=== PATIENT | female | born 1985 | race Caucasian/White ===

== ENCOUNTER 2022-12-31 09:52 | Inpatient (IN) | payer MEDICAID ==
[~2022-12-31] VITALS: Ht 157.5 cm; Wt 58.1 kg
[2022-12-31 10:41] LABS: BASOPHILS % 0.9 % (0.0-2.0); CHLORIDE 103 mEq/L (98-107); EOSINOPHILS % 1.3 % (0.0-5.0); HEMATOCRIT. 37.7 % (36.0-48.0); HEMOGLOBIN. 12.7 g/dL (12.0-16.0); INDEX HEMOLYSI 1 (1-3); INDEX ICTERIC 2 (1-4); INDEX LIPEMIC 1 (1-3); LYMPHOCYTES % 14.4 % (20.0-50.0); MEAN CORPUSCULAR HEMOGLOBIN 35.5 pg (28.0-32.0); MEAN CORPUSCULAR HGB CONC 33.6 g/dL (31.0-37.0); MEAN CORPUSCULAR VOLUME 105.8 fL (81.0-99.0); MONOCYTES % 7.8 % (2.0-8.0); NEUTROPHILS % 75.6 % (40.0-76.0); POTASSIUM 3.8 mEq/L (3.5-5.1); RED BLOOD CELL COUNT 3.56 mill/uL (4.2-5.4); RED CELL DISTRIBUTION WIDTH 12.6 % (11.6-14.6); SODIUM 137 mEq/L (136-145); WHITE BLOOD COUNT 10.3 x1000/uL (4.5-11.0)
[2022-12-31 10:51] LABS: ALANINE AMINOTRANSFERASE 59 IU/L (13-61); ALBUMIN 2.9 g/dL (3.4-5.0); ASPARTATE AMINOTRANSFERASE 231 IU/L (15-37); BILIRUBIN TOTAL 4.1 mg/dL (0.1-1.0); CALCIUM 7.9 mg/dL (8.5-10.1); CARBON DIOXIDE 29 mEq/L (21-32); CREATININE 0.3 mg/dL (0.6-1.3); GLUCOSE 122 mg/dL (70-105); NT PRO B-TYPE NATRIURETIC PEP 157 pg/mL (5-125); PROTEIN TOTAL 8.9 g/dL (6.0-8.3); TROPONIN I HIGH SENSITIVITY 33 ng/L (<54); UREA NITROGEN BLOOD 2 mg/dL (7-21)
[2022-12-31 11:02] LABS: DIFFERENTIAL COMMENT 1
[2022-12-31 13:08] LABS: TROPONIN I HIGH SENSITIVITY 33 ng/L (<54)
[2022-12-31] MEDS ORDERED: ONDANSETRON HCL 4MG/2ML INJ IV ONE (13:15)
[2022-12-31] MEDS ORDERED: SODIUM CHLORIDE 0.9% 1,000 ML IV ONE (13:15)
[2022-12-31] MEDS ORDERED: FAMOTIDINE 20MG/2ML VIAL IV ONE (13:15)
[2022-12-31 13:24] LABS: HCG SCREEN NEGATIVE
[2022-12-31] MEDS ORDERED: CALCIUM GLUCONATE 1GM PREMIX 50 ML IV NR (14:00)
[2022-12-31] MEDS ORDERED: CHLORDIAZEPOXIDE 25MG CAPSULE PO ONE (17:00)
[2022-12-31] MEDS ORDERED: PIPERACILLIN/TAZOBACTAM 3.375GM/50ML PREMIX IV NR (19:30)
[2022-12-31] MEDS ORDERED: PIPERACILLIN/TAZ 3.375G PREMIX 50 ML IV NR (19:35)
[2022-12-31 20:26] LABS: CLARITY URINE CLEAR (CLEAR); COLOR URINE DARK YELLOW (YELLOW); GLUCOSE URINE NEGATIVE (NEGATIVE); KETONES URINE NEGATIVE (NEGATIVE); LEUKOCYTE ESTERASE URINE NEGATIVE (NEGATIVE); NITRITE URINE POSITIVE (NEGATIVE); OCCULT BLOOD URINE NEGATIVE (NEGATIVE); PH URINE 8.5 (4.5-8.0); PROTEIN URINE NEGATIVE (NEGATIVE); SPECIFIC GRAVITY URINE 1.042 (1.005-1.030)
[2022-12-31 20:28] LABS: RBC URINE 0-2 /hpf (0-2); SQUAMOUS EPITHELIAL CELL URINE NONE SEEN /lpf (RARE/1+); YEAST URINE NONE SEEN
[2022-12-31 21:00] LABS: BACTERIA URINE 3+
[2022-12-31] MEDS ORDERED: IPRATROPIUM/ALBUTEROL 0.5-3(2.5)MG/3ML NEB HHN PRN (23:15)
[2022-12-31] MEDS ORDERED: ACETAMINOPHEN 325MG TABLET PO PRN ×2 (23:15)
[2022-12-31] MEDS ORDERED: MAGNESIUM/ALUMINUM HYDROXIDE/SIMETHICONE 30ML UDC PO PRN (23:15)
[2022-12-31] MEDS ORDERED: ONDANSETRON HCL 4MG/2ML INJ IV PRN (23:15)
[2022-12-31] MEDS ORDERED: DOCUSATE SODIUM 100MG CAPSULE PO PRN (23:15)
[2022-12-31] MEDS ORDERED: GUAIFENESIN 200MG/10ML SUGAR FREE UDC PO PRN (23:15)
[2022-12-31] MEDS ORDERED: CLONIDINE 0.1MG TABLET PO PRN (23:15)
[2022-12-31] MEDS ORDERED: CEFTRIAXONE 1GM PREMIX 50 ML IV SCH (23:15)
[2022-12-31] MEDS ORDERED: IOHEXOL-350 100 ML BOTTLE ONE (23:24)
[2023-01-01] MEDS: PANTOPRAZOLE SODIUM 40 MG/VIAL IV SCH ×3 (00:09→21:15)
[2023-01-01] MEDS: MORPHINE SULFATE 2 MG/ML CPJ (NOT FOR IM USE) IV PRN ×3 (00:09→21:02)
[2023-01-01 00:10] LABS: AMMONIA 99 uMol/L (<32)
[2023-01-01 00:21] LABS: ALBUMIN 2.3 g/dL (3.4-5.0); BILIRUBIN DIRECT 3.1 mg/dL (0.0-0.2); BILIRUBIN TOTAL 5.3 mg/dL (0.1-1.0); PHOSPHORUS 2.9 mg/dL (2.5-4.9); T4 FREE 1.21 ng/dL (0.76-1.46)
[2023-01-01] MEDS ORDERED: MVI, ADULT NO.1 10 ML, FOLIC ACID 1 MG, THIAMINE HCL 100 MG in SODIUM CHLORIDE 0.9% 1,0... IV SCH ×4 (00:30)
[2023-01-01 01:40] LABS: HEPATITIS B SURFACE ANTIGEN NEGATIVE
[2023-01-01 02:08] LABS: HEPATITIS C VIR.AB 0.38 INDEXVAL (0.00-0.80)
[2023-01-01 02:09] LABS: HEPATITIS B CORE AB IGM NEGATIVE
[2023-01-01 02:10] LABS: HEPATITIS A AB IGM NEGATIVE (NEGATIVE)
[2023-01-01 04:00] VITALS: BP 101/64; PULSE 93; RESP 20; TEMP 97.7
[2023-01-01] MEDS ORDERED: NITROGLYCERIN 0.4MG TABLET SL SL PRN (04:00)
[2023-01-01 06:47] LABS: BASOPHILS % 1.1 % (0.0-2.0); EOSINOPHILS % 3.5 % (0.0-5.0); HEMATOCRIT. 29.8 % (36.0-48.0); HEMOGLOBIN. 10.2 g/dL (12.0-16.0); LYMPHOCYTES % 24.9 % (20.0-50.0); MEAN CORPUSCULAR HEMOGLOBIN 36.3 pg (28.0-32.0); MEAN CORPUSCULAR HGB CONC 34.3 g/dL (31.0-37.0); MEAN CORPUSCULAR VOLUME 105.8 fL (81.0-99.0); MONOCYTES % 8.1 % (2.0-8.0); NEUTROPHILS % 62.4 % (40.0-76.0); RED BLOOD CELL COUNT 2.82 mill/uL (4.2-5.4); RED CELL DISTRIBUTION WIDTH 12.5 % (11.6-14.6); WHITE BLOOD COUNT 8.9 x1000/uL (4.5-11.0)
[2023-01-01 06:50] LABS: INR 1.7; PROTHROMBIN TIME 17.9 sec (9.6-11.0)
[2023-01-01 06:56] LABS: DIFFERENTIAL COMMENT 1
[2023-01-01] MEDS: LACTULOSE 20G/30ML UDC PO SCH ×3 (07:13→21:00)
[2023-01-01 07:21] LABS: CHLORIDE 105 mEq/L (98-107); INDEX HEMOLYSI 1 (1-3); INDEX ICTERIC 2 (1-4); INDEX LIPEMIC 1 (1-3); POTASSIUM 3.2 mEq/L (3.5-5.1); SODIUM 138 mEq/L (136-145)
[2023-01-01 07:45] LABS: ALANINE AMINOTRANSFERASE 36 IU/L (13-61); ALBUMIN 2.3 g/dL (3.4-5.0); ASPARTATE AMINOTRANSFERASE 141 IU/L (15-37); BILIRUBIN TOTAL 4.9 mg/dL (0.1-1.0); CALCIUM 7.6 mg/dL (8.5-10.1); CREATINE KINASE 20 IU/L (26-192); CREATININE 0.4 mg/dL (0.6-1.3); ETHANOL BLOOD < 10 mg/dL (<10); GLUCOSE 87 mg/dL (70-105); IRON 121 ug/dL (50-175); PROTEIN TOTAL 6.7 g/dL (6.0-8.3); TOTAL IRON BINDING CAPACITY 210 ug/dL (250-450); TROPONIN I HIGH SENSITIVITY 27 ng/L (<54); UREA NITROGEN BLOOD 4 mg/dL (7-21)
[2023-01-01 08:00] VITALS: BP_SYST 63; PULSE 94; RESP 19; TEMP 98.1
[2023-01-01 08:02] VITALS: BP 101/64; PULSE 93; RESP 20; TEMP 97.1
[2023-01-01] MEDS ORDERED: THIAMINE HCL 100MG TABLET PO SCH (09:00)
[2023-01-01] MEDS: FOLIC ACID 1MG TABLET PO SCH (11:00)
[2023-01-01] MEDS: ASPIRIN 81MG EC TABLET PO SCH (11:00)
[2023-01-01] MEDS: THIAMINE HCL 200 MG in SODIUM CHLORIDE 0.9% 98 ML IV SCH (11:00)
[2023-01-01 12:00] VITALS: BP 101/63; PULSE 88; RESP 20; TEMP 98.7
[2023-01-01 12:26] LABS: CARBON DIOXIDE 25 mEq/L (21-32)
[2023-01-01] MEDS ORDERED: PHYTONADIONE 10MG/ML INJ SUBCUT NR (12:30)
[2023-01-01] MEDS: LEVOTHYROXINE SODIUM 50MCG TABLET PO SCH (13:10)
[2023-01-01] MEDS ORDERED: DEXT 5% WATER + KCL 40MEQ/L 1,000 ML IV ONE (13:30)
[2023-01-01] MEDS ORDERED: MAGNESIUM 4 G PREMIX 100 ML IV NR (14:00)
[2023-01-01] MEDS ORDERED: POTASSIUM CHLORIDE INJ 40 MEQ in DEXTROSE 5% WATER 1,000 ML IV ONE (14:00)
[2023-01-01 16:00] VITALS: BP 90/57; PULSE 96; RESP 19; TEMP 97.9
[2023-01-01 19:04] LABS: ALBUMIN 2.5 g/dL (3.4-5.0); BILIRUBIN DIRECT 3.5 mg/dL (0.0-0.2); BILIRUBIN TOTAL 5.8 mg/dL (0.1-1.0); PROTEIN TOTAL 7.6 g/dL (6.0-8.3)
[2023-01-01 19:58] LABS: INDEX HEMOLYSI 1 (1-3)
[2023-01-01 20:00] VITALS: BP 92/55; PULSE 94; RESP 20; TEMP 98
[2023-01-01] MEDS ORDERED: CEFTRIAXONE 1,000 MG in DEXTROSE 5% WATER 50 ML IV SCH (20:00)
[2023-01-01 20:27] LABS: VITAMIN B12 SERUM 935 pg/mL (211-911)
[2023-01-01 21:31] LABS: INDEX HEMOLYSI 1 (1-3)
[2023-01-01 22:01] LABS: FOLIC ACID (FOLATE) SERUM >20 ng/mL ng/mL (>5.38); VITAMIN B12 SERUM 1042 pg/mL (211-911)
[2023-01-02] VITALS: BP 95/48; PULSE 90; RESP 20; TEMP 97.9
[2023-01-02 04:00] VITALS: BP 88/61; PULSE 88; RESP 20; TEMP 98.9
[2023-01-02] MEDS: MORPHINE SULFATE 2 MG/ML CPJ (NOT FOR IM USE) IV PRN ×2 (05:36→11:04)
[2023-01-02 06:05] LABS: INDEX HEMOLYSI 1 (1-3)
[2023-01-02 06:08] LABS: AMMONIA 81 uMol/L (<32)
[2023-01-02 06:14] LABS: BASOPHILS % 0.8 % (0.0-2.0); EOSINOPHILS % 3.7 % (0.0-5.0); HEMATOCRIT. 31.6 % (36.0-48.0); LYMPHOCYTES % 20.8 % (20.0-50.0); MEAN CORPUSCULAR HGB CONC 34.6 g/dL (31.0-37.0); MEAN CORPUSCULAR VOLUME 106.8 fL (81.0-99.0); MONOCYTES % 8.2 % (2.0-8.0); NEUTROPHILS % 66.5 % (40.0-76.0); RED BLOOD CELL COUNT 2.96 mill/uL (4.2-5.4); RED CELL DISTRIBUTION WIDTH 12.8 % (11.6-14.6); WHITE BLOOD COUNT 10.8 x1000/uL (4.5-11.0)
[2023-01-02] MEDS: LACTULOSE 20G/30ML UDC PO SCH ×3 (06:29→22:00)
[2023-01-02] MEDS: LEVOTHYROXINE SODIUM 50MCG TABLET PO SCH (06:29)
[2023-01-02 06:32] LABS: DIFFERENTIAL COMMENT 1
[2023-01-02 08:00] VITALS: BP 104/95; PULSE 98; RESP 20; TEMP 98.1
[2023-01-02] MEDS: DEXTROSE 5% WATER 1,000 ML IV SCH ×2 (08:00→22:00)
[2023-01-02 08:32] LABS: CHLORIDE 107 mEq/L (98-107); INDEX HEMOLYSI 1 (1-3); INDEX ICTERIC 2 (1-4); INDEX LIPEMIC 1 (1-3); POTASSIUM 3.6 mEq/L (3.5-5.1); SODIUM 138 mEq/L (136-145)
[2023-01-02 08:42] LABS: ALANINE AMINOTRANSFERASE 35 IU/L (13-61); ALBUMIN 2.3 g/dL (3.4-5.0); ASPARTATE AMINOTRANSFERASE 122 IU/L (15-37); BILIRUBIN TOTAL 4.7 mg/dL (0.1-1.0); CALCIUM 7.7 mg/dL (8.5-10.1); CARBON DIOXIDE 27 mEq/L (21-32); CREATININE 0.4 mg/dL (0.6-1.3); GLUCOSE 104 mg/dL (70-105); UREA NITROGEN BLOOD 3 mg/dL (7-21)
[2023-01-02] MEDS: PANTOPRAZOLE SODIUM 40 MG/VIAL IV SCH ×2 (10:21→21:00)
[2023-01-02] MEDS: FOLIC ACID 1MG TABLET PO SCH (10:21)
[2023-01-02] MEDS: ASPIRIN 81MG EC TABLET PO SCH (10:21)
[2023-01-02] MEDS: THIAMINE HCL 200 MG in SODIUM CHLORIDE 0.9% 98 ML IV SCH (10:21)
[2023-01-02] MEDS: LEVOFLOXACIN 500MG PREMIX 100 ML IV SCH (11:09)
[2023-01-02] MEDS: METRONIDAZOLE 500 MG PREMIX 100 ML IV SCH ×2 (11:09→19:50)
[2023-01-02 12:00] VITALS: BP 117/69; PULSE 90; RESP 20; TEMP 98.1
[2023-01-02 14:58] LABS: PHOSPHORUS 3.2 mg/dL (2.5-4.9)
[2023-01-02 16:23] LABS: *AMPHETAMINES SCREEN URINE NEGATIVE (NEGATIVE); *BARBITURATES SCREEN URINE NEGATIVE (NEGATIVE); *COCAINE SCREEN URINE NEGATIVE (NEGATIVE); CANNABINOID URINE SCREEN NEGATIVE (NEGATIVE); ECSTASY MDMA SCREEN URINE NEGATIVE (NEGATIVE); METHADONE URINE SCREEN NEGATIVE (NEGATIVE); PHENCYCLIDINE URINE SCREEN NEGATIVE (NEGATIVE)
[2023-01-02] MEDS: BLOOD SUGAR DIAGNOSTIC STRIP TEST SCH ×2 (16:38→22:00)
[2023-01-02 16:45] LABS: *BENZODIAZEPINES SCREEN URINE PRESUMTIVE POSITIVE (NEGATIVE); OPIATES URINE SCREEN PRESUMTIVE POSITIVE (NEGATIVE)
[2023-01-02 20:00] VITALS: BP 117/63; PULSE 95; RESP 20; TEMP 97.8
[2023-01-03] VITALS (7 sets, daily range): BP systolic 94–101; BP diastolic 50–70; PULSE 81–95; RESP 18–20; TEMP 98–99.7; O2SAT 100
[2023-01-03] MEDS: METRONIDAZOLE 500 MG PREMIX 100 ML IV SCH ×3 (02:45→18:02)
[2023-01-03] MEDS: LACTULOSE 20G/30ML UDC PO SCH ×2 (06:00→16:11)
[2023-01-03] MEDS: BLOOD SUGAR DIAGNOSTIC STRIP TEST SCH ×2 (06:00→14:00)
[2023-01-03 06:29] LABS: INDEX HEMOLYSI 1 (1-3)
[2023-01-03] MEDS: MORPHINE SULFATE 2 MG/ML CPJ (NOT FOR IM USE) IV PRN ×2 (06:30→16:29)
[2023-01-03 06:33] LABS: AMMONIA 74 uMol/L (<32)
[2023-01-03] MEDS: LEVOTHYROXINE SODIUM 50MCG TABLET PO SCH (07:04)
[2023-01-03 07:37] LABS: INR 1.5; PROTHROMBIN TIME 15.5 sec (9.6-11.0)
[2023-01-03 07:49] LABS: CHLORIDE 106 mEq/L (98-107); INDEX HEMOLYSI 1 (1-3); INDEX ICTERIC 2 (1-4); INDEX LIPEMIC 1 (1-3); POTASSIUM 3.5 mEq/L (3.5-5.1); SODIUM 137 mEq/L (136-145)
[2023-01-03 07:50] LABS: BASOPHILS % 0.8 % (0.0-2.0); EOSINOPHILS % 3.4 % (0.0-5.0); HEMATOCRIT. 31.7 % (36.0-48.0); HEMOGLOBIN. 10.5 g/dL (12.0-16.0); LYMPHOCYTES % 21.7 % (20.0-50.0); MEAN CORPUSCULAR HEMOGLOBIN 35.7 pg (28.0-32.0); MEAN CORPUSCULAR HGB CONC 33.2 g/dL (31.0-37.0); MEAN CORPUSCULAR VOLUME 107.7 fL (81.0-99.0); MONOCYTES % 7.3 % (2.0-8.0); NEUTROPHILS % 66.8 % (40.0-76.0); RED BLOOD CELL COUNT 2.95 mill/uL (4.2-5.4); RED CELL DISTRIBUTION WIDTH 12.7 % (11.6-14.6)
[2023-01-03 07:54] LABS: DIFFERENTIAL COMMENT 1
[2023-01-03 08:03] LABS: ALANINE AMINOTRANSFERASE 34 IU/L (13-61); ALBUMIN 2.3 g/dL (3.4-5.0); ASPARTATE AMINOTRANSFERASE 107 IU/L (15-37); BILIRUBIN TOTAL 3.7 mg/dL (0.1-1.0); CALCIUM 7.7 mg/dL (8.5-10.1); CARBON DIOXIDE 26 mEq/L (21-32); CREATININE 0.4 mg/dL (0.6-1.3); GLUCOSE 108 mg/dL (70-105); PROTEIN TOTAL 6.8 g/dL (6.0-8.3); UREA NITROGEN BLOOD 2 mg/dL (7-21)
[2023-01-03] MEDS: PANTOPRAZOLE SODIUM 40 MG/VIAL IV SCH (09:15)
[2023-01-03] MEDS: ASPIRIN 81MG EC TABLET PO SCH (09:15)
[2023-01-03] MEDS: FOLIC ACID 1MG TABLET PO SCH (09:15)
[2023-01-03] MEDS: LEVOFLOXACIN 500MG PREMIX 100 ML IV SCH (11:00)
[2023-01-03] MEDS ORDERED: FOLI-43 PO (13:49)
[2023-01-03] MEDS ORDERED: THIA250T3 PO (13:49)
[2023-01-03] MEDS ORDERED: LEVO50TA8 PO (13:49)
[2023-01-03] MEDS ORDERED: METR-167 PO (13:49)
[2023-01-03] MEDS ORDERED: LACT10SO7 PO (13:49)
[2023-01-03] MEDS ORDERED: PANT40TA51 PO (13:49)
[2023-01-03] MEDS ORDERED: LEVO-65 PO (13:49)
[2023-01-03] MEDS: THIAMINE HCL 200 MG in SODIUM CHLORIDE 0.9% 98 ML IV SCH (15:51)
[2023-01-03] MEDS ORDERED: NALOXONE HCL 0.4MG/ML VIAL IV PRN (22:00)
== END 2023-01-03 19:45 | disposition home or self-care (01) ==
LOC: ER 09:52 → EDBEDREQTM 21:26 → EDBEDREQ 21:26 → MICUSO 21:45 → 6EST 01-01 00:47
PROVIDERS: ADMIT Internal Medicine; ATTEND Internal Medicine
DX: K80.00 Calculus of gallbladder with acute cholecystitis without obstruction (principal); E43 Unspecified severe protein-calorie malnutrition; D68.9 Coagulation defect, unspecified; K76.6 Portal hypertension; K92.2 Gastrointestinal hemorrhage, unspecified; K74.60 Unspecified cirrhosis of liver; N39.0 Urinary tract infection, site not specified; M94.0 Chondrocostal junction syndrome [Tietze]; D53.9 Nutritional anemia, unspecified; N92.6 Irregular menstruation, unspecified; K76.9 Liver disease, unspecified; E03.9 Hypothyroidism, unspecified; E78.1 Pure hyperglyceridemia; F10.10 Alcohol abuse, uncomplicated; E83.42 Hypomagnesemia; N28.1 Cyst of kidney, acquired; E87.6 Hypokalemia; G89.29 Other chronic pain; Z68.23 Body mass index [BMI] 23.0-23.9, adult; Y90.0 Blood alcohol level of less than 20 mg/100 ml
CPT/HCPCS: 36415; 71045; 71275; 72128; 74177; 74181; 76700; 80053; 80061; 80076; 80305; 80320; 81003; 82140; 82248; 82550; 82607; 82728; 82746; 82962; 82977; 83036; 83520; 83540; 83550; 83605; 83735; 83880; 84100; 84145; 84439; 84443; 84481; 84484; 84703; 85025; 85044; 85379; 86705; 86709; 86803; 87340; 93005; 93970; 97162; 97165; 99285; C9113; J0610; J0696; J1956; J2270; J2405; J2543; J3411; J3430; J3475; J3480; J3490; J7030; J7050; J7060; J7070; Q9967; G0480

== ENCOUNTER 2023-05-31 15:41 | Inpatient (IN) | payer MEDICAID, OTHER ==
[~2023-05-31] VITALS: Ht 160 cm; Wt 63.5 kg
[~2023-05-31 15:41] MED LIST: FOLI-43 PO; LACT10SO7 PO; LEVO-65 PO; LEVO50TA8 PO; METR-167 PO; PANT40TA51 PO; THIA250T3 PO
[2023-05-31 17:00] LABS: BASOPHILS % 1.5 % (0.0-2.0); DIFFERENTIAL COMMENT 0; LYMPHOCYTES % 29.8 % (20.0-50.0); MEAN CORPUSCULAR HEMOGLOBIN 32.9 pg (28.0-32.0); MEAN CORPUSCULAR HGB CONC 32.5 g/dL (31.0-37.0); MEAN CORPUSCULAR VOLUME 101.4 fL (81.0-99.0); MEAN PLATELET VOLUME 6.6 fl (7.4-10.4); MONOCYTES % 6.2 % (2.0-8.0); NEUTROPHILS % 59.5 % (40.0-76.0); PLATELET 256 x1000/uL (130-400); RED BLOOD CELL COUNT 2.01 mill/uL (4.2-5.4); RED CELL DISTRIBUTION WIDTH 19.5 % (11.6-14.6); WHITE BLOOD COUNT 8.8 x1000/uL (4.5-11.0)
[2023-05-31 17:15] LABS: HEMOGLOBIN. 6.6 g/dL (12.0-16.0)
[2023-05-31 17:16] LABS: HEMATOCRIT. 20.4 % (36.0-48.0)
[2023-05-31 17:16] LABS: CLARITY URINE TURBID (CLEAR); COLOR URINE DARK YELLOW (YELLOW); GLUCOSE URINE NEGATIVE (NEGATIVE); KETONES URINE TRACE (NEGATIVE); LEUKOCYTE ESTERASE URINE 1+ (NEGATIVE); NITRITE URINE POSITIVE (NEGATIVE); OCCULT BLOOD URINE NEGATIVE (NEGATIVE); PH URINE 6.5 (4.5-8.0); PROTEIN URINE 1+ (NEGATIVE); SPECIFIC GRAVITY URINE 1.029 (1.005-1.030)
[2023-05-31 17:19] LABS: ALANINE AMINOTRANSFERASE 27 IU/L (10-49); ALBUMIN 2.5 g/dL (3.2-4.8); ASPARTATE AMINOTRANSFERASE 82 IU/L (<34); BILIRUBIN TOTAL 2.4 mg/dL (0.1-1.0); CALCIUM 7.2 mg/dL (8.7-10.4); CARBON DIOXIDE 27 mEq/L (21-32); CHLORIDE 104 mEq/L (98-107); CREATININE 0.6 mg/dL (0.6-1.0); GLUCOSE 101 mg/dL (70-105); POTASSIUM 4.1 mEq/L (3.5-5.1); PROTEIN TOTAL 5.9 g/dL (6.0-8.3); SODIUM 133 mEq/L (136-145); UREA NITROGEN BLOOD 9 mg/dL (9-23)
[2023-05-31 17:47] LABS: AMORPHOUS SEDIMENT URINE 2+ /lpf; BACTERIA URINE 3+; RBC URINE 0-2 /hpf (0-2); SQUAMOUS EPITHELIAL CELL URINE 1+ /lpf (RARE/1+)
[2023-05-31] MEDS: CEFTRIAXONE 1GM/50ML 50 ML IV ONE (18:43)
[2023-05-31] MEDS: ONDANSETRON HCL 4MG/2ML INJ IV ONE (18:43)
[2023-05-31] MEDS: SODIUM CHLORIDE 0.9% 500 ML IV ONE (18:43)
[2023-05-31 19:08] LABS: HCG SCREEN NEGATIVE
[2023-05-31] MEDS: MORPHINE SULFATE 4 MG/ML INJ (FOR IV/IM USE) IV ONE (19:10)
[2023-05-31 21:46] LABS: TROPONIN I HIGH SENSITIVITY 13 ng/L (3.0-34)
[2023-05-31 21:47] LABS: ETHANOL BLOOD < 10 mg/dL (<10)
[2023-06-01] MEDS: IOHEXOL-300 100 ML BOTTLE ONE (00:42)
[2023-06-01] MEDS: MORPHINE SULFATE 4 MG/ML INJ (FOR IV/IM USE) IV ONE (01:40)
[2023-06-01] MEDS: HYDROCODONE/ACETAMINOPHEN 10/325MG TABLET PO PRN (04:01)
[2023-06-01] MEDS: MULTIVITAMINS,THER W-MINERALS TABLET PO SCH (09:00)
[2023-06-01] MEDS: FUROSEMIDE 40MG TABLET PO SCH (09:00)
[2023-06-01] MEDS: SPIRONOLACTONE 50MG TABLET PO SCH (09:00)
[2023-06-01] MEDS: THIAMINE HCL 100MG TABLET PO SCH (09:00)
[2023-06-01] MEDS ORDERED: CEFTRIAXONE 1GM/50ML 50 ML IV SCH (09:00)
[2023-06-01 10:30] VITALS: BP 94/50; PULSE 76; RESP 18; TEMP 98.3
[2023-06-01] MEDS ORDERED: NALOXONE HCL 0.4MG/ML VIAL IV PRN (10:45)
[2023-06-01 11:13] VITALS: BP 94/50; PULSE 76; RESP 18; TEMP 98.3
[2023-06-01] MEDS: CEFTRIAXONE 1GM/50ML 50 ML IV SCH (14:39)
[2023-06-01 16:13] LABS: HEMATOCRIT 22.7 % (36.0-48.0); HEMOGLOBIN 7.4 g/dL (12.0-16.0)
[2023-06-01 16:18] LABS: INR 1.7
[2023-06-01 20:00] VITALS: BP 98/61; PULSE 79; RESP 19; TEMP 97.9
[2023-06-02] VITALS (8 sets, daily range): BP systolic 84–107; BP diastolic 46–63; PULSE 77–91; RESP 18–20; TEMP 97.3–98.9; O2SAT 97
[2023-06-02] MEDS ORDERED: LEVO-65 MT (08:37)
[2023-06-02] MEDS ORDERED: LIDOCAINE HCL 1% 10 MG/ML 10ML VIAL ONE (10:08)
[2023-06-02 13:07] LABS: BODY FLUID MONOCYTES 6 %; BODY FLUID RBC 10 /cu mm (0-2000); BODY FLUID WBC 75 /cu mm (0-200)
[2023-06-02 17:38] LABS: HEMATOCRIT 21.7 % (36.0-48.0); HEMOGLOBIN 7.2 g/dL (12.0-16.0)
== END 2023-06-02 17:29 | disposition home or self-care (01) ==
LOC: ER 15:41 → EDBEDREQ 18:01 → 7WST 23:10 → EDBEDREQTM 23:16 → EDBEDREQ 23:16
PROVIDERS: ADMIT Internal Medicine; ATTEND Internal Medicine
PROC: 30233N1 Transfusion of Nonautologous Red Blood Cells into Peripheral Vein, Percutaneous Approach (ICD-10-PCS; 2023-05-31)
PROC: 0W9G3ZZ Drainage of Peritoneal Cavity, Percutaneous Approach (ICD-10-PCS; principal; 2023-06-02)
DX: K74.60 Unspecified cirrhosis of liver (principal); E43 Unspecified severe protein-calorie malnutrition; R18.8 Other ascites; K76.6 Portal hypertension; I85.10 Secondary esophageal varices without bleeding; D64.9 Anemia, unspecified; S30.0XXA Contusion of lower back and pelvis, initial encounter; K80.20 Calculus of gallbladder without cholecystitis without obstruction; R16.1 Splenomegaly, not elsewhere classified; N39.0 Urinary tract infection, site not specified; Z68.24 Body mass index [BMI] 24.0-24.9, adult; X58.XXXA Exposure to other specified factors, initial encounter; Y93.89 Activity, other specified; Y92.89 Other specified places as the place of occurrence of the external cause; Y99.8 Other external cause status
CPT/HCPCS: 36415; 49083; 74177; 80053; 80320; 81003; 83880; 84484; 84703; 85014; 85018; 85025; 86850; 86900; 86920; 99285; J0696; J2270; J2405; J3490; J7040; P9016; Q9967; G0480